=== PATIENT | male | born 1965 | race Caucasian/White ===

== ENCOUNTER 2020-05-03 15:03 | Emergency (ER) | payer OTHER, SELFPAY ==
[2020-05-03] VITALS (13 sets, daily range): BP systolic 123–126; BP diastolic 64–97; PULSE 67–91; RESP 12–25; TEMP 36.8; O2SAT 97–99
--- NOTE | ~2020-05-03 | XR_ITS ---
EXAMINATION: XR chest 1V portable DATE: 05/03/2020 15:34 INDICATION: Generalized chest pain. Transient alteration of awareness. TECHNIQUE: frontal view of the chest was obtained. COMPARISON: Chest radiograph dated 07/18/2013 FINDINGS: Again seen is a small calcified nodule in the lateral right midlung zone consistent with old granulom atous disease. The lungs remain otherwise clear with no focal airspace opacities, pulmonary edema, pl eural effusion or pneumothorax. The cardiomediastinal silhouette is normal. Mild thoracic and moderat e lower cervical spondylosis. IMPRESSION: 1. No acute cardiopulmonary disease. Reviewed, dictated and finalized at location H. [place] MERCHANDISING MANAGER
--- NOTE | 2020-05-03 15:17 | ECG_ITS ---
Measurements Intervals [place] Rate: 87 P: 68 MS: 171 QRS: -29 QRSD: 96 T: 65 QT: 362 QTc: 437 Interpretive Statements SINUS RHYTHM POSSIBLE RIGHT ATRIAL ENLARGEMENT POSSIBLE LEFT ATRIAL ENLARGEMENT CANNOT RULE OUT SEPTAL INFARCT, AGE INDETERMINATE BASELINE ARTIFACT- I, II, III, AVR, AVL, AVF, V1, V4-V6 ABNORMAL ECG Electronically Signed On 05-03-2020 17:04:04 [employer] by Deonte Lauren D.O.
[2020-05-03 15:36] LABS: Basophils Absolute Auto 0.1 K/mm3 (0.0-0.1); Basophils Percent Auto 0.7 % (0.2-1.2); Eosinophils Absolute Auto 0.3 K/mm3 (0-0.3); Eosinophils Percent Auto 3.7 % (0-4.4); Hematocrit 48.7 % (42.0-52.0); Hemoglobin 16.8 g/dL (14.0-18.0); Immature Granulocyte Absolute 0.03 K/mm3 (0.00-0.031); Immature Granulocyte Percent A 0.3 % (0-0.5); Lymphocytes Absolute Auto 2.12 K/mm3 (0.9-3.2); Lymphocytes Percent Auto 24.1 % (18.3-44.2); Mean Corpuscular HGB Conc 34.5 g/dl (32-36); Mean Corpuscular Hemoglobin 29.7 pg (26-34); Mean Corpuscular Volume 86.2 fl (80-100); Mean Platelet Volume 9.7 fl (7.4-10.4); Monocytes Absolute Auto 0.6 K/mm3 (0.1-0.6); Monocytes Percent Auto 6.9 % (2.6-8.5); Neutrophils Absolute Auto 5.7 K/mm3 (1.3-6.7); Neutrophils Percent Auto 64.3 % (45.5-73.1); Platelet Count Result 260 k/mm3 (150-375); Red Blood Count 5.65 M/mm3 (4.6-6.20); Red Cell Distribution Width 12.7 % (11.5-14.5); White Blood Count 8.8 K/mm3 (4.5-10.0)
[2020-05-03 15:46] LABS: Partial Thromboplastin Time 29.7 SECONDS (22.3-36.8); Prothrombin Time 13.7 Seconds (11.1-14.7)
[2020-05-03 15:47] LABS: Anion Gap 5 mmol/L (8-16); Blood Urea Nitrogen 22 mg/dL (9-20); Calcium 9.3 mg/dL (8.4-10.2); Carbon Dioxide 28 mmol/L (22-30); Chloride 104 mmol/L (98-107); Estimated CRCL calculation 75 ml/min; Estimated Glomerular Filt Rate > 60; Glucose 105 mg/dL (75-110); Potassium 4.2 mmol/L (3.4-5.0); Sodium 137 mmol/L (137-145)
[2020-05-03] MEDS: KETOROLAC (*BKC) 60 MG/2 ML VIAL IM (15:58)
[2020-05-03 15:59] LABS: Troponin I < 0.012 ng/mL (0.000-0.034)
--- NOTE | 2020-05-03 16:53 | ED.GENADULT ---
HPI - General Adult General Chief complaint: Chest Pain Stated complaint: CHEST PAIN Time Seen by Provider: 05/03/20 15:17 History of Present Illness HPI narrative: Patient is a 55-year-old male who presents ER in police custody with complaints of chest pain and whole body pain. He reports its been ongoing for last 5 years but that his chest pain began yesterday. He cannot describe words physically located over the quality of the pain. No reports of radiation. He cannot describe any aggravating or alleviating factors. Not particularly willing to participate in the taking of a history or an exam. Patient denies previous cardiac issues and reports he does use methamphetamine. Related Data Allergies Allergy/AdvReac Type Severity Reaction Status Date / Time No Known Allergies Allergy Unverified 06/20/16 14:32 Review of Systems Review of Systems: All systems reviewed & are unremarkable except as noted in HPI and below Cardiovascular: Cardiovascular: Reports chest pain, Denies rapid heart rate and Denies radiating jaw, neck or arm pain Respiratory: Respiratory: Denies cough and Denies dyspnea Gastrointestinal: Gastrointestinal: Denies abdominal pain, Denies nausea and Denies vomiting Musculoskeletal: Musculoskeletal: Reports myalgias, Denies arthralgias and Denies joint swelling PMFSH Past Medical History Medical History (Updated 05/03/20 @ 17:46 by Aman Waite MD) Migraine Surgical History Surgical History (Updated 05/03/20 @ 17:43 by Aman Waite MD) No pertinent past surgical history Social History Social History (Updated 05/03/20 @ 17:43 by Aman Waite MD) Smoking status: Current every day smoker Substance use type: marijuana and methamphetamine Exam Narrative: Exam Narrative: GENERAL: Uncomfortable-appearing, well-nourished, and rolling away from examiner each time I moved to a different area to examine him. HEAD: Normocephalic, atraumatic. ENT: Mucous membranes moist. CHEST: Clear to auscultation. No respiratory distress. HEART: Regular rate and rhythm. Normal peripheral pulses. ABDOMEN: Soft, nontender, nondistended. EXTREMITIES: Normal range of motion. No edema. SKIN: Warm, dry. Right forearm with area of swelling with central skin defect that appears to be scabbing and having had drainage previously. No cellulitis or fluctuance to indicate cellulitis/abscess. NEURO: Alert and oriented x3. Course Course Emergency Course: Patient resting comfortably and has no complaints after receiving Toradol IM. Labs unremarkable. Negative chest x-ray. Nerve swelling to the right forearm appears to have been draining. Its nonfluctuant and there is no surrounding erythema to indicate active infection/need for antibiotics. Patient is no longer in police custody. Vital Signs Vital signs: Vital Signs Temperature 98.2 F 05/03/20 15:18 Pulse Rate 88 05/03/20 15:18 Respiratory Rate 12 05/03/20 15:18 Blood Pressure 124/97 H 05/03/20 15:18 Pulse Oximetry 99 05/03/20 15:18 Temperature 98.2 F 05/03/20 15:18 Pulse Rate 88 05/03/20 15:18 Respiratory Rate 12 05/03/20 15:18 Blood Pressure 124/97 H 05/03/20 15:18 Pulse Oximetry 99 05/03/20 15:18 Medical Decision Making Vital Signs Vital Signs: Vital Signs Temperature 98.2 F 05/03/20 15:18 Pulse Rate 88 05/03/20 15:18 Respiratory Rate 12 05/03/20 15:18 Blood Pressure 124/97 H 05/03/20 15:18 Pulse Oximetry 99 05/03/20 15:18 Temperature 98.2 F 05/03/20 15:18 Pulse Rate 88 05/03/20 15:18 Respiratory Rate 12 05/03/20 15:18 Blood Pressure 124/97 H 05/03/20 15:18 Pulse Oximetry 99 05/03/20 15:18 Lab Data Result diagrams: 05/03/20 15:28 05/03/20 15:28 Labs: Lab Results 05/03/20 05/03/20 05/03/20 Range/Units 15:28 15:28 15:28 WBC 8.8 (4.5-10.0) K/mm3 RBC 5.65 (4.6-6.20) M/mm3 Hgb 16.8 (14.0-18.0) g/dL Hct 48.7 (
== END 2020-05-03 17:54 | disposition home or self-care (01) ==
PROVIDERS: Emergency Provider Emergency Medicine; Referring Provider Family Medicine
DX: R07.89 Other chest pain (principal); F17.200 Nicotine dependence, unspecified, uncomplicated; R94.31 Abnormal electrocardiogram [ECG] [EKG]
CPT/HCPCS: 36415; 71045; 80048; 84484; 85025; 85610; 85730; 93005; 96372; 99284; J1885

== ENCOUNTER 2020-05-17 13:34 | Observation (INO) | payer OTHER, SELFPAY ==
[2020-05-17] VITALS (54 sets, daily range): BP systolic 86–141; BP diastolic 52–107; PULSE 66–106; RESP 0–21; O2SAT 94–100; BMI 26.4
--- NOTE | ~2020-05-17 | CT_ITS ---
EXAMINATION: CTA chest abdomen pelvis DATE: 05/17/2020 18:45 INDICATION: Right-sided chest and jaw pain. TECHNIQUE: Computed tomography (CT) pulmonary angiogram of the chest was performed with 100 mL Omnipa que-350 intravenous contrast. Additional 3D reconstructions utilizing coronal maximum intensity proje ction (MIP) were performed. CT of the abdomen and pelvis was performed with intravenous contrast util izing the same contrast bolus following a short delay. Automated exposure control and iterative recon struction technique were employed. The dose-length product was 622.32 mGy-cm. COMPARISON: None FINDINGS: Chest: Good contrast opacification of the pulmonary arteries. There is mild streak artifact from dense contr ast in the superior vena cava and right atrium. Minimal scattered respiratory motion artifact which d oes not significantly limit evaluation. No pulmonary embolism. No pneumonia, pulmonary edema, pleural effusion or pneumothorax. Mild atelectasis at the lateral left lung base in the lingula and left low er lobe. Small calcified nodule in the right midlung zone consistent with old granulomatous disease. Heart size is normal. No pericardial effusion. Thoracic aorta is normal in caliber with no dissection . No pathologically enlarged thoracic lymphadenopathy. Mild thoracic spondylosis. Abdomen/pelvis: Liver, gallbladder, spleen, pancreas, bilateral adrenal glands and kidneys are normal. Calcified appe ndicolith at the distal tip of the otherwise normal appendix with no periappendiceal inflammatory str anding to suggest acute appendicitis. Bowels are normal with no wall thickening or obstruction. Bladd er is normal. No free intraperitoneal gas or fluid. No pathologically enlarged abdominal or pelvic ly mphadenopathy. Moderate lumbar spondylosis. IMPRESSION: 1. No pulmonary embolism or other acute cardiopulmonary disease. 2. No acute intra-abdominal/pelvic process. Reviewed, dictated and finalized at location A. TARY PILOT
--- NOTE | ~2020-05-17 | XR_ITS ---
EXAMINATION: XR chest 1V portable DATE: 05/17/2020 15:06 INDICATION: Left sided chest pain. Right-sided jaw pain. TECHNIQUE: frontal and lateral views of the chest were obtained. COMPARISON: Chest radiograph dated 05/03/2020 FINDINGS: Calcite nodules in the right midlung zone consistent with old granulomatous disease. No focal airspac e opacities, pulmonary edema, pleural effusion or pneumothorax. The cardiomediastinal silhouette is n ormal. Visualized bones and soft tissues are unremarkable. IMPRESSION: 1. No acute cardiopulmonary disease. Reviewed, dictated and finalized at location A. OOER
[2020-05-17] MEDS: KETOROLAC 30 MG/ML VIAL (*BKC) IV PUSH (14:06)
[2020-05-17] MEDS: LACTATED RINGERS 1,000 ML 999 ML IV CONT (14:08)
--- NOTE | 2020-05-17 14:08 | ED.CHESTPAIN ---
HPI - Chest Pain General Chief Complaint: Chest Pain <Levon Hernandez PA-C Filed: 05/17/20 19:42> Stated Complaint: chest pain <Levon Hernandez PA-C Fabio Filed: 05/17/20 19:42> Time Seen by Provider: 05/17/20 13:43 <JOSH Graves Last Filed: 05/17/20 19:42> Source: patient and EMS <JOSH Graves Filed: 05/17/20 19:42> Mode of arrival: EMS <Levon Hernandez PA-C Fabio Filed: 05/17/20 19:42> Limitations: no limitations <Levon Hernandez PA-C Filed: 05/17/20 19:42> History of Present Illness HPI narrative: Patient is a 55-year-old male in police custody who presents with left-sided chest discomfort is a moderate aching pain patient woke this morning with the pain pain radiates to the neck patient notes history of possible heart attack in the past but cannot tell no details denies any stenting patient appears uncomfortable on arrival patient denies illness notes that he felt fine yesterday has been incarcerated for the last 3 days patient does not take any daily medicines other than aspirin he notes denies any illicit drug use does note tobacco abuse <Levon Hernandez PA-C Filed: 05/17/20 19:42> Related Data Allergies/Adverse Reactions: Allergies Allergy/AdvReac Type Severity Reaction Status Date / Time No Known Allergies Allergy Unverified 06/20/16 14:32 <Levon Hernandez PA-C Last Filed: 05/17/20 19:42> Review of Systems Review of Systems: All systems reviewed & are unremarkable except as noted in HPI and below <Levon Hernandez PA-C Last Filed: 05/17/20 19:42> [facility] Past Medical History Medical History: Medical History CAD (coronary artery disease) H/O: HTN (hypertension) Hyperlipidemia Migraine <Levon Hernandez PA-C Last Filed: 05/17/20 19:42> Surgical History Surgical History: Surgical History No pertinent past surgical history <Levon Hernandez PA-C - Last Filed: 05/17/20 19:42> Social History Social History: Social History Smoking status: Current every day smoker Tobacco type: cigarettes Substance use: current Substance use type: marijuana and methamphetamine Gender identity (if verbalized by the patient): Male Spiritual care concerns: No <JOSH Graves Last Filed: 05/17/20 19:42> Exam Narrative: Exam Narrative: GENERAL: Well-appearing, well-nourished, uncomfortable and in no acute distress. HEAD: Normocephalic, atraumatic. EYES: PERRLA and EOMI. ENT: Nares clear, no rhinorrhea or epistaxis. Mucous membranes moist. NECK: Supple. No adenopathy or masses. CHEST: Clear to auscultation. No respiratory distress. No wheezes rales or rhonchi HEART: Regular rate and rhythm. No murmur heard. Normal peripheral pulses. ABDOMEN: Soft, generalized tenderness, nondistended EXTREMITIES: Normal range of motion. No edema. SKIN: Warm, dry, no rash. NEURO: No focal deficits. Alert and oriented x3. PSYCH: Normal mood and affect. <JOSH Graves Last Filed: 05/17/20 19:42> Course Course Emergency Course: Patient at this time in the room continuing to not feel well noting belly pain chest pain and headache patient did not respond to any of the medications will be kept in hospital overnight as requested by cardiology would like CTA performed which was done in the emergency department will also have trending of the troponins. <Levon Hernandez PA-C - Last Filed: 05/17/20 19:42> Consultations Consultation #1: Discussed case with Dr. Inga Orozco the on-call distribution transformer assembler who would like the patient to have a CTA the patient to be placed in hospital for continued evaluation will see the patient in the morning would like another set of enzymes to be performed with no further recommendation <
--- NOTE | 2020-05-17 14:09 | PC.NURSE ---
patient medicated as ordered. deputies still in room. patient remains shackled at feet. on potline monitor.
--- NOTE | 2020-05-17 14:23 | ECG_ITS ---
Measurements Intervals [place] Rate: 76 P: 61 NV: 166 QRS: -24 QRSD: 101 T: 61 QT: 340 QTc: 383 Interpretive Statements SINUS RHYTHM POSSIBLE LEFT ATRIAL ENLARGEMENT LOW QRS VOLTAGE IN LIMB LEADS CANNOT RULE OUT SEPTAL INFARCT, AGE INDETERMINATE BASELINE ARTIFACT- I, II, V1 ABNORMAL ECG Electronically Signed On 05-17-2020 16:17:44 MOBILITY ENGINEER by Deonte Lauren D.O.
[2020-05-17 14:52] LABS: Basophils Percent Auto 0.5 % (0.2-1.2); Eosinophils Absolute Auto 0.2 K/mm3 (0-0.3); Eosinophils Percent Auto 2.2 % (0-4.4); Hematocrit 47.9 % (42.0-52.0); Hemoglobin 16.4 g/dL (14.0-18.0); Immature Granulocyte Absolute 0.03 K/mm3 (0.00-0.031); Immature Granulocyte Percent A 0.4 % (0-0.5); Lymphocytes Absolute Auto 1.51 K/mm3 (0.9-3.2); Lymphocytes Percent Auto 17.7 % (18.3-44.2); Mean Corpuscular HGB Conc 34.2 g/dl (32-36); Mean Corpuscular Hemoglobin 29.6 pg (26-34); Mean Corpuscular Volume 86.5 fl (80-100); Mean Platelet Volume 10.1 fl (7.4-10.4); Monocytes Absolute Auto 0.6 K/mm3 (0.1-0.6); Monocytes Percent Auto 6.8 % (2.6-8.5); Neutrophils Absolute Auto 6.2 K/mm3 (1.3-6.7); Neutrophils Percent Auto 72.4 % (45.5-73.1); Platelet Count Result 242 k/mm3 (150-375); Red Blood Count 5.54 M/mm3 (4.6-6.20); Red Cell Distribution Width 12.7 % (11.5-14.5); White Blood Count 8.6 K/mm3 (4.5-10.0)
[2020-05-17 15:02] LABS: INR 0.9; Partial Thromboplastin Time 28.2 SECONDS (22.3-36.8); Prothrombin Time 13.1 Seconds (11.1-14.7)
[2020-05-17 15:05] LABS: Alanine Aminotransferase 11 U/L (4-50); Albumin Level 3.5 g/dL (3.5-5.1); Alkaline Phosphatase 54 U/L (38-126); Anion Gap 3 mmol/L (8-16); Aspartate Amino Transferase 21 U/L (17-59); Bilirubin,Total 0.5 mg/dL (0.2-1.3); Blood Urea Nitrogen 16 mg/dL (9-20); Carbon Dioxide 29 mmol/L (22-30); Chloride 101 mmol/L (98-107); Estimated CRCL calculation 93 ml/min; Estimated Glomerular Filt Rate > 60; Glucose 99 mg/dL (75-110); Lipase 27 U/L (23-300); Potassium 4.1 mmol/L (3.4-5.0); Sodium 133 mmol/L (137-145)
--- NOTE | 2020-05-17 15:15 | PC.NURSE ---
resting on stretcher. on hurricane tracker. waiting for all labs to be resulted. deputies in room.
[2020-05-17 15:16] LABS: D Dimer < 0.22 ug/mL (<0.48); Troponin I < 0.012 ng/mL (0.000-0.034)
--- NOTE | 2020-05-17 15:20 | PC.NURSE ---
resting on stretcher. provider in room. will get 2nd trop in 3 hours. will give additional meds for c/o pain. deputies in room.
[2020-05-17] MEDS: PANTOPRAZOLE SODIUM IV 40 MG VIAL IV PUSH (15:32)
--- NOTE | 2020-05-17 15:43 | PC.NURSE ---
patient medicated as ordered. warm blanket given. patient and deputies updated with current treatment plan and expected wait time.
--- NOTE | 2020-05-17 17:28 | PC.NURSE ---
waiting for repeat trop results. resting on stretcher. no change in condition.
[2020-05-17 17:32] LABS: Troponin I < 0.012 ng/mL (0.000-0.034)
--- NOTE | 2020-05-17 17:32 | PC.NURSE ---
resting on stretcher. no change in condition.
--- NOTE | 2020-05-17 18:45 | PC.NURSE ---
patient back from CT. attempting to void again. aware that he will need straight cath if unsuccessful. archives technician at bedside. deputies have released patient from custody. aware of planned admission for repeat trop. CT pending. alert. oriented.
[2020-05-17 19:00] LABS: Add Urine Microscopic? YES; Appearance Urine Clear (Clear); Bilirubin Urine Negative (Negative); Blood Urine Negative (Negative); Color Urine Yellow (Yellow); Glucose Urine UA Negative (Negative); Ketones Urine Negative (Negative); Leukocyte Esterase Ur Negative LEU/UL (Negative); Mucus Urine Heavy /lpf; Nitrate Urine Negative (Negative); Protein Urine 1+ mg/dL (Negative); RBC Urine 0-2 /hpf (0-2); Urobilinogen Urine Negative mg/dL (<2.0); WBC Urine 0-3 /hpf
[2020-05-17 19:06] LABS: Specific Grav Ur 1.031 (1.001-1.035)
[2020-05-17 19:17] LABS: Barbiturate Screen Urine Negative (Negative); Benzodiazepines Screen Urine Negative (Negative)
--- NOTE | 2020-05-17 19:17 | PC.NURSE ---
patient walked to hallway phone to call family
[2020-05-17 19:19] LABS: Cannabinoid Screen Urine Positive (Negative); Cocaine Screen Urine Negative (Negative); Methadone Screen Urine Negative (Negative); Opiate Screen Urine Negative (Negative); Phencyclidine Screen Urine Negative (Negative)
--- NOTE | 2020-05-17 19:51 | PM.IMHP ---
H&P: HPI History of Present Illness Date/Time: 05/17/20 19:51 Chief complaint: chest pain Narrative: This is a 55 year old male who is currently in police custody with known history of CAD+, HTN, and hyperlipidemia who presented to the hospital with a complaint of left sided chest pain that woke him up from sleep today and radiates towards his neck. Associated symptoms include diaphoresis and epigastric discomfort. He denies any shortness of breath, nausea, or vomiting. His chest pain improved in the ER with nitroglycerin today. The patient believes he might have had a previous heart attack but doesn't remember. Currently he smokes 10-15 cigarettes daily but previously he was smoking more than 2 ppd. He denies taking any home medications for his chronic HTN or hyperlipidemia. He was evaluated in the ER tonight and initial troponin was negative. Chest/Abd/Pelvic CT scan was negative for any acute pathology. Cardiology, Dr. Bobby has been consulted by ER provider and has asked that we admit the patient to the hospital for further care. He has no other complaints. Review of Systems Review of Systems: All systems reviewed & are unremarkable except as noted in HPI and below PMFSH Past Medical History Medical History CAD (coronary artery disease) H/O: HTN (hypertension) Hyperlipidemia Migraine Surgical History Surgical History No pertinent past surgical history Social History Social History Smoking status: Current every day smoker Tobacco type: cigarettes Substance use: current Substance use type: marijuana and methamphetamine Gender identity (if verbalized by the patient): Male Spiritual care concerns: No Comments past family medical history is reviewed and noncontributory. Meds Home Medications and Allergies Home Medications Medication Instructions Recorded Confirmed Type aspirin [Children's Aspirin] 81 mg PO DAILY@0800 30 Days #30 05/18/20 Rx tablet Allergies Allergy/AdvReac Type Severity Reaction Status Date / Time No Known Allergies Allergy Unverified 06/20/16 14:32 Vital Signs Vital Signs - 24 hr 05/17/20 13:49 05/17/20 13:59 05/17/20 14:00 Pulse Rate 88 78 Respiratory Rate 16 Blood Pressure Pulse Oximetry 97 98 05/17/20 14:15 05/17/20 14:16 05/17/20 14:17 Pulse Rate 79 79 72 Respiratory Rate 19 18 19 Blood Pressure 133/80 Pulse Oximetry 05/17/20 14:30 05/17/20 14:31 05/17/20 14:45 Pulse Rate 82 75 71 Respiratory Rate 14 14 17 Blood Pressure 134/99 H Pulse Oximetry 97 97 97 05/17/20 14:47 05/17/20 15:00 05/17/20 15:17 Pulse Rate 75 Respiratory Rate 18 Blood Pressure 141/79 H 99/66 L Pulse Oximetry 96 97 05/17/20 15:19 05/17/20 15:30 05/17/20 15:45 Pulse Rate 106 H 75 82 Respiratory Rate 15 20 Blood Pressure Pulse Oximetry 96 97 05/17/20 15:46 05/17/20 16:00 05/17/20 16:01 Pulse Rate 72 74 69 Respiratory Rate 15 16 17 Blood Pressure 113/60 111/73 Pulse Oximetry 97 97 96 05/17/20 16:15 05/17/20 16:16 05/17/20 16:30 Pulse Rate 66 66 Respiratory Rate 13 12 0 L Blood Pressure 125/69 Pulse Oximetry 98 97 94 05/17/20 16:32 05/17/20 16:33 05/17/20 16:45 Pulse Rate 80 81 74 Respiratory Rate 14 18 14 Blood Pressure 86/68 L 102/61 Pulse Oximetry 97 97 96 05/17/20 16:47 05/17/20 17:00 05/17/20 17:02 Pulse Rate 73 70 73 Respiratory Rate 15 15 17 Blood Pressure 129/107 H 102/68 Pulse Oximetry 96 97 96 05/17/20 17:15 05/17/20 17:16 05/17/20 17:17 Pulse Rate 72 71 77 Respiratory Rate 14 13 13 Blood Pressure 104/65 Pulse Oximetry 97 97 97 05/17/20 17:30 05/17/20 17:31 05/17/20 17:45 Pulse Rate 69 75 67 Respiratory Rate 14 15 17 Blood Pressure 100/65 Pulse Oximetry 98 98 96 05/17/20 17:46 05/17/20 18:00
[2020-05-17 19:56] LABS: Amphetamine Screen Urine Positive (Negative)
[2020-05-17 20:54] LABS: Cholesterol 206 mg/dL (0-200); HDL Direct 72 mg/dL; Triglycerides 108 mg/dL (<150)
[2020-05-17 21:05] LABS: LDL Cholesterol Direct 115 mg/dL
[2020-05-17 21:06] LABS: Troponin I < 0.012 ng/mL (0.000-0.034)
[2020-05-17] MEDS: NICOTINE (*PBKC) 21 MG PATCH 1 PATCH TRANSDERM (21:36)
--- NOTE | 2020-05-17 22:37 | ADMGEN ---
This patient, Timothy Andrew, was admitted to [facility]. Patient/family oriented to hospital policies and general routines including ID bracelet, bed and alarms, visiting hours, pain management, procedures, bathroom and other care routines, personal items, smoking policy, room service/diet, and visiting hours. Information on how to activate the Rapid Response Team has been discussed. Patient/Family are encouraged to report perceived risks to care and to ask questions if they do not understand what they are told or what they should do.
[2020-05-18] VITALS: BP 122/77; PULSE 77; RESP 15; O2SAT 100
[2020-05-18 02:00] VITALS: PULSE 67
[2020-05-18 04:00] VITALS: BP 128/81; PULSE 64; PULSE 66; PULSE 67; RESP 15; O2SAT 100; O2SAT 98
[2020-05-18 06:00] VITALS: PULSE 71
[2020-05-18 08:00] VITALS: BP 126/80; PULSE 63; PULSE 75; RESP 16; TEMP 37.1; O2SAT 97
--- NOTE | 2020-05-18 08:57 | PC.NURSE ---
CHENCHO HERE FROM CARE COORDINATION TO SEE PT. VERIFIED CUSTODY STATUS W/ [facility]'S DEPT AND ALSO PROVIDED INFORMATION ON FOLLOW UP CARE PROVIDERS.
--- NOTE | 2020-05-18 09:00 | PC.NURSE ---
JOSIE RIGGS HERE TO SEE PT. CONDITION UPDATE GIVEN.
--- NOTE | 2020-05-18 09:38 | PM.DS ---
DS: Admitting Diagnosis Admitting Diagnosis Admitting Diagnosis: Chest Pain DS: Discharge Diagnosis Discharge Diagnosis (1) Atypical chest pain: Code(s): R07.89 - Other chest pain Status: Acute Assessment and Plan: Date of Admission 05/17/20 Date of Discharge/DOS 05/18/20 Mr. Andrew is a 55yo M with history of tobacco use and hypertension who presented to the ED from [facility] for evaluation of chest pain. He described left-sided chest pain that had been occurring on and off for around 2 weeks, and woke him up out of his sleep night prior to arrival. Relieved with nitroglycerin. Troponins negative x3. Cardiology was consulted and he was seen by Dr Marie, recommended he will need to follow up outpatient for stress testing. Patient described if he was not discharged today, he would leave against medical advice. He was hemodynamically stable for discharge and was encouraged to establish care with a PCP, and to follow up with Dr Marie in 1 to 2 weeks for outpatient stress testing. (2) H/O: HTN (hypertension): Code(s): Z86.79 - Personal history of other diseases of the circulatory system Status: Chronic Assessment and Plan: Stable, last 126/80. Describes he is not on any antihypertensives. Establish care with PCP and follow up with cardiology. (3) Hyperlipidemia: Qualifiers: Hyperlipidemia type: unspecified Qualified Code(s): E78.5 - Hyperlipidemia, unspecified Code(s): E78.5 - Hyperlipidemia, unspecified Status: Chronic Assessment and Plan: Follow up PCP. (4) Tobacco dependence: Code(s): F17.200 - Nicotine dependence, unspecified, uncomplicated Status: Chronic Assessment and Plan: Educated on smoking cessation. DS: Summary Time Spent with Patient Time attestation: Total time spent providing and/or coordinating discharge services: 40 minutes Exam Narrative: Exam Narrative: General: Male resting comfortably supine in bed in no acute distress. HEENT: Normocephalic, EOMI, oral mucosa moist. Cardiovascular: Rate and rhythm are regular. Respiratory: Lungs clear to auscultation bilaterally. Respirations even and non-labored. Abdomen: Soft, non-tender, non-distended, bowel sounds present. Extremities: Peripheral pulses intact. No edema. Neuro: No focal neurological deficits. Speech is clear. DS: Data Data Completed and Pending Labs on day of discharge: Last Vital Signs Temp 98.8 F 05/18/20 08:00 Pulse 75 05/18/20 10:00 Resp 16 05/18/20 08:00 BP 126/80 05/18/20 08:00 Pulse Ox 97 05/18/20 08:00 ITS Impressions Chest X-Ray 05/17/20 15:09 IMPRESSION: 1. No acute cardiopulmonary disease. Chest/Abdomen/Pelvis CTA 05/17/20 19:01 IMPRESSION: 1. No pulmonary embolism or other acute cardiopulmonary disease. 2. No acute intra-abdominal/pelvic process. Laboratory Tests 05/17/20 14:45 05/17/20 14:45 Discharge Plan Discharge Attending physician on discharge: Alberto Schumacher Consulting providers: Clifford Arteaga Jr. ; Rahat Marie ; Prasad Tang ; Deonte Lauren ; Rossi Shaver Discharging Clinician: Rossi Shaver Anticipated Discharge Date/Time: 05/18/20 11:00 Patient Disposition: Home, Self-Care Activity: as tolerated Diet: as tolerated and heart healthy Discharge Instructions: Call to schedule a follow up appointment with Dr Marie this week or next. It is important for you to establish care with a primary care provider as soon as possible. Continue to monitor your symptoms and seek medical care right away if your illness is worsening. Return to ER if you have concerning symptoms including chest pain, feeling like you can't breathe, or persistent fevers >
--- NOTE | 2020-05-18 09:45 | PC.NURSE ---
NOTIFIED JOSIE RIGGS OF CLOSED RAISED NODULE ON BACK OF R. LOWER ARM. NODULE IS LIGHT PINK COLORED AND HAS SCAB IN CENTER. AREA IS RAISED AND SOFT. PT. STATES AREA HAD BEEN MUCH MORE RAISED IN RECENT PAST AND HAD BEEN DRAINING (PRIOR TO HOSPITALIZATION). STATES CURRENT STATE OF SITE IS LOOKING MUCH BETTER AND IS SMALLER, NO DRAINAGE, IS SCABBED, AND APPEARS TO BE HEALING. NO NEW ORDERS RECEIVED FROM JOSIE RIGGS.
[2020-05-18] MEDS: NICOTINE (*PBKC) 21 MG PATCH 1 PATCH TRANSDERM (09:48)
[2020-05-18] MEDS: ASPIRIN 81 MG CHEWABLE TABLET PO (09:48)
[2020-05-18 10:00] VITALS: PULSE 75
--- NOTE | 2020-05-18 10:00 | PC.NURSE ---
DR. MARTEL HERE TO SEE PT IN CONSULTATION. CONDITION UPDATE GIVEN. OK TO DISCHARGE PT. HOME. JOSIE RIGGS NOTIFIED OF SUCH.
--- NOTE | 2020-05-18 10:26 | PM.CNCAR ---
Assessment and Plan Assessment and plan (1) Tobacco dependence: Code(s): F17.200 - Nicotine dependence, unspecified, uncomplicated Status: Chronic Assessment and Plan: He stated that he is going to try to quit smoking (2) Hyperlipidemia: Qualifiers: Hyperlipidemia type: unspecified Qualified Code(s): E78.5 - Hyperlipidemia, unspecified Code(s): E78.5 - Hyperlipidemia, unspecified Status: Chronic Assessment and Plan: Will check lipid profile and treat accordingly (3) H/O: HTN (hypertension): Code(s): Z86.79 - Personal history of other diseases of the circulatory system Status: Chronic (4) Atypical chest pain: Code(s): R07.89 - Other chest pain Status: Acute (5) CAD (coronary artery disease): Code(s): I25.10 - Atherosclerotic heart disease of [place] coronary artery without angina pectoris Status: Acute Assessment and Plan: His pain is atypical, however has significant risk factors for coronary artery disease including family history, dyslipidemia, and history of smoking. So far he is pain free, okay to be discharged home, he needs to have a follow-up for outpatient stress test and further evaluation. Additional Plan Thank you for allowing me to participate in this patient's care, I will be following up with you. Please do not hesitate to call me for any other inquiry History of Present Illness History of Present Illness Consult date/time: 05/18/20 10:26 55 years old gentleman with history of smoking, history of dyslipidemia and hypertension, came to the hospital because of chest pain. Started having chest pain the day before admission to the hospital heaviness in the chest with radiation to the back in addition to the left shoulder. According to him the pain was constant, upon arrival to the emergency room was given and nitroglycerin and aspirin, continued to have significant pain his EKG was unremarkable and cardiac enzymes are negative and now he has 3 sets of troponin which all are negative. According times chest pain subsided on its own as he went to sleep last night and this morning he feels well. 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 Since admission he is feeling better now, his chest pain subsided, and troponin is still negative Reason For Visit: chest pain Review of Systems Review of Systems: All systems reviewed & are unremarkable except as noted in HPI and below PMFSH Past Medical History Medical History (Updated 05/17/20 @ 20:16 by Teto Reyes MD) CAD (coronary artery disease) H/O: HTN (hypertension) Hyperlipidemia Migraine Surgical History Surgical History No pertinent past surgical history Social History Social History Smoking status: Current every day smoker Tobacco type: cigarettes Substance use: current Substance use type: marijuana and methamphetamine Gender identity (if verbalized by the patient): Male Spiritual care concerns: No Meds Home Medications and Allergies Home Medications Medication Instructions Recorded Confirmed Type No Home Medications 05/17/20 05/17/20 History Allergies Allergy/AdvReac Type Severity Reaction Status Date / Time No Known Allergies Allergy Unverified 06/20/16 14:32 Vital Signs Vital Signs - 24 hr 05/17/20 13:49 05/17/20 13:59 05/17/20 14:00 Pulse Rate 88 78 Respiratory Rate 16 Blood Pressure Pulse Oximetry 97 98 05/17/20 14:15 05/17/20 14:16 05/17/20 14:17 Pulse Rate 79 79 72 Respiratory Rate 19 18 19 Blood Pressure 133/80 Pulse Oximetry 05/17/20 14:30 05/17/20 14:31 05/17/20 14:45 Pulse Rate 82 75 71 Respiratory Rate 14 14 17
--- NOTE | 2020-05-18 11:00 | PC.NURSE ---
PT. UP IN ROOM. HAS EATEN BREAKFAST, DONE AM HYGIENE AT SINK. TOLERATED WELL. DENIES PAIN OR SOB. STEADY GAIT. PROVIDED ACCEPTING DOCTOR DIRECTORY TO PT. DRESSING FOR DISCHARGE HOME. IV SITE DISCONTINUED.
--- NOTE | 2020-05-18 11:10 | PC.NURSE ---
REVIEWED DISCHARGE INSTRUCTIONS W/ PT. QUESTIONS ANSWERED. VOICED UNDERSTANDING OF ALL. DISCHARGED HOME, OUT AMBULATORY TO FAMILY WAITING CAR W/ ALL PERSONAL BELONGINGS AND DISCHARGE PACKET. NO DISTRESS NOTED. VOICES NO C/O.
== END 2020-05-18 11:10 | disposition home or self-care (01) ==
LOC: ANHED 19:48 → ANHCPC 05-18 09:37
PROVIDERS: Emergency Medicine Emergency Medical Services; Admitting Provider Family Medicine; Emergency Provider General Practice; Visit Provider Internal Medicine
DX: R07.89 Other chest pain (principal); F17.200 Nicotine dependence, unspecified, uncomplicated; E78.5 Hyperlipidemia, unspecified; I25.10 Atherosclerotic heart disease of native coronary artery without angina pectoris; I10 Essential (primary) hypertension; F12.90 Cannabis use, unspecified, uncomplicated; F15.90 Other stimulant use, unspecified, uncomplicated; R51.9 Headache, unspecified; R94.31 Abnormal electrocardiogram [ECG] [EKG]; Z86.79 Personal history of other diseases of the circulatory system; Z82.49 Family history of ischemic heart disease and other diseases of the circulatory system; Z79.82 Long term (current) use of aspirin
CPT/HCPCS: 36415; 71045; 71275; 74174; 80053; 80061; 80307; 81001; 83690; 84484; 85025; 85380; 85610; 85730; 93005; 96361; 96365; 96375; 99285; A9270; C9113; G0378; G0379; J0131; J1885; J7120; Q9967

== ENCOUNTER 2022-08-05 17:46 | Emergency (ER) | payer OTHER, SELFPAY ==
[2022-08-05 18:35] VITALS: BP 184/103; PULSE 89; RESP 18; TEMP 36.2; O2SAT 98
--- NOTE | 2022-08-05 19:23 | ED.BACK ---
HPI - Back Pain/Injury General Chief Complaint: Back Pain/Injury Stated Complaint: low back pain with radiation down left leg Time Seen by Provider: 08/05/22 19:12 History of Present Illness HPI Narrative: 57-year-old male here via EMS for evaluation of back pain x8 days. Patient states that the pain originates in his left lower back and radiates down his left leg. Denies any saddle anesthesia, incontinence or retention of bowel or bladder, fevers, trauma. States he has a history of sciatica but has never had any imaging of his lower back. He lifted a heavy object prior to onset of his symptoms. Related Data Allergies Allergy/AdvReac Type Severity Reaction Status Date / Time No Known Allergies Allergy Verified 08/05/22 19:26 Review of Systems Review of Systems: Gen: Denies fevers or chills Eyes: Denies eye pain or visual change ENT: Denies congestion Respiratory: Denies shortness of breath or cough CV: Denies chest pain or palpitations GI: Denies abdominal pain nausea, emesis or diarrhea : denies burning, urgency, frequency or hematuria Musculoskeletal: Reports back pain and left lower extremity pain Neuro: Denies numbness, tingling, weakness or focal weakness Skin: Denies rash Except as documented, all other systems reviewed and negative PMFSH Past Medical History Medical History CAD (coronary artery disease) H/O: HTN (hypertension) Hyperlipidemia Migraine Surgical History Surgical History No pertinent past surgical history Social History Social History Smoking status: Current every day smoker Tobacco type: cigarettes Substance use: current Substance use type: marijuana and methamphetamine Gender identity (if verbalized by the patient): Male Spiritual care concerns: No Exam Narrative: APPEARANCE: Well appearing, no pain in distress, well-nourished. Head: Normocephalic and atraumatic. EYES: PERRLA/EOMI, conjunctivae clear NOSE: No nasal drainage EARS: External ear normal in appearance THROAT: Oropharynx is clear. Mucous membranes are moist. NECK: Supple. No adenopathy, no masses. RESPIRATORY: Airway patent, respirations nonlabored. Clear to auscultation bilaterally, no rales, rhonchi, wheezing. CARDIOVASCULAR: Regular rate and rhythm without murmurs, rubs, or gallops. ABDOMINAL: Normoactive bowel sounds. Soft, nontender, nondistended. No rebound tenderness or guarding. MUSCULOSKELETAL: Extremities are warm and well-perfused. Moves all extremities well. No edema. NEURO: Normal speech. No focal neurologic deficits. SKIN: Skin is warm and dry. No rashes. PSYCHIATRIC: Normal affect/mood. Course Vital Signs Vital signs: Vital Signs Temperature 97.2 F L 08/05/22 18:35 Pulse Rate 89 08/05/22 18:35 Respiratory Rate 18 08/05/22 18:35 Blood Pressure 184/103 H 08/05/22 18:35 Pulse Oximetry 98 08/05/22 18:35 Oxygen Delivery Room Air 08/05/22 18:35 Temperature 97.9 F 08/05/22 19:27 Pulse Rate 75 08/05/22 19:27 Respiratory Rate 14 08/05/22 19:27 Blood Pressure 174/89 H 08/05/22 19:27 Pulse Oximetry 100 08/05/22 19:27 Oxygen Delivery Room Air 08/05/22 18:35 MDM - Back Pain/Injury MDM Narrative Medical decision making narrative: 57-year-old male here for evaluation of low back pain over the past 8 days. This patient presents with back pain most consistent with sciatica. Differential diagnoses includes lumbago versus musculoskeletal spasm / strain versus sciatica. No back pain red flags on history or physical. Presentation not consistent with malignancy (lack of history of malignancy, lack of B symptoms), fracture (no trauma, no bony tenderness to palpation), cauda equina (no bowel or urinary incontinence/retention, no saddle anesthesia, no distal weakness), AAA, viscus perforation
[2022-08-05 19:27] VITALS: BP 174/89; PULSE 75; RESP 14; TEMP 36.6; O2SAT 100
[2022-08-05] MEDS: CYCLOBENZAPRINE HCL 5 MG TABLET PO (19:58)
[2022-08-05] MEDS: ACETAMINOPHEN 325 MG TABLET 650 MG PO (19:59)
== END 2022-08-05 20:50 | disposition home or self-care (01) ==
PROVIDERS: Emergency Provider Physician Assistant
DX: M54.42 Lumbago with sciatica, left side (principal); I25.10 Atherosclerotic heart disease of native coronary artery without angina pectoris; I10 Essential (primary) hypertension; E78.5 Hyperlipidemia, unspecified; F17.210 Nicotine dependence, cigarettes, uncomplicated
CPT/HCPCS: 96372; 99283; A9270; J1100